=== PATIENT | male | born 1990 | race Caucasian/White ===

== ENCOUNTER 2016-05-25 18:20 | Emergency (ER) | payer SELFPAY ==
[~2016-05-25] VITALS: Ht 167.6 cm; Wt 68.9 kg
[2016-05-25] MEDS ORDERED: ACETAMINOPHEN TAB 650MG DOSE (2X325MG) PO ONE (21:45)
[2016-05-25] MEDS ORDERED: ACETAMINOPH W/CODEINE #3 TAB UD PO ONE (21:45)
[2016-05-25] MEDS ORDERED: TYLETAB14 PO (22:29)
[2016-05-25 22:54] VITALS: BP 124/80
--- NOTE | 2016-05-26 09:02 | REP ---
RIGHT HAND: Four views right hand performed. There is a fracture of the distal 5th metacarpal with mild anterior angulation, without significant displacement. No other acute fracture or dislocation is seen of the visualized osseous structures. IMPRESSION: Nondisplaced fracture distal 5th metatarsal with mild anterior angulation. Signed by Felix Rdz MD 05/26/2016 05:16 P
== END 2016-05-25 23:04 | disposition home or self-care (01) ==
LOC: M ED 20:03
DX: S62.336A Displaced fracture of neck of fifth metacarpal bone, right hand, initial encounter for closed fracture (principal); W22.8XXA Striking against or struck by other objects, initial encounter; Y92.019 Unspecified place in single-family (private) house as the place of occurrence of the external cause; Y93.89 Activity, other specified; Y99.8 Other external cause status

== ENCOUNTER 2017-05-29 13:42 | Emergency (ER) | payer SELFPAY, MEDICAID | END 2017-05-29 16:08 | disposition home or self-care (01) | LOC: M ED 13:42 | DX: S29.012A Strain of muscle and tendon of back wall of thorax, initial encounter (principal); X58.XXXA Exposure to other specified factors, initial encounter; Y92.9 Unspecified place or not applicable; Y93.89 Activity, other specified; Y99.0 Civilian activity done for income or pay; F17.200 Nicotine dependence, unspecified, uncomplicated; Z88.1 Allergy status to other antibiotic agents | CPT/HCPCS: 73030 ==

== ENCOUNTER 2017-08-06 17:38 | Emergency (ER) | payer SELFPAY, OTHER ==
[2017-08-06] MEDS: ADACEL/BOOSTRIX VACCINE (DIPHTH/PERTUSS/ACELL/TETANUS)0.5ML SYR (90715) IM (19:40)
[2017-08-06] MEDS: ACETAMINOPH W/CODEINE #3 TAB UD PO (19:40)
== END 2017-08-06 21:22 | disposition home or self-care (01) ==
LOC: M ED 17:38
DX: Z04.1 Encounter for examination and observation following transport accident (principal); S80.12XA Contusion of left lower leg, initial encounter; S63.91XA Sprain of unspecified part of right wrist and hand, initial encounter; V13.4XXA Pedal cycle driver injured in collision with car, pick-up truck or van in traffic accident, initial encounter; Y92.410 Unspecified street and highway as the place of occurrence of the external cause; F17.200 Nicotine dependence, unspecified, uncomplicated; Z88.1 Allergy status to other antibiotic agents
CPT/HCPCS: 90715

== ENCOUNTER 2018-04-28 21:36 | Emergency (ER) | payer SELFPAY ==
[~2018-04-28] VITALS: Ht 167.6 cm; Wt 68.2 kg
[~2018-04-28 21:36] MED LIST: CYCL10TA PO; KETO10TAB PO; TYLETAB14 PO
[2018-04-28 21:37] VITALS: BP 148/78
== END 2018-04-28 22:58 | disposition home or self-care (01) ==
LOC: M ED 21:36
DX: H61.21 Impacted cerumen, right ear (principal); F17.200 Nicotine dependence, unspecified, uncomplicated; Z88.1 Allergy status to other antibiotic agents

== ENCOUNTER → 2018-12-13 | Outpatient (REF) | payer SELFPAY | LOC: M LAB REF 19:16 | PROVIDERS: ATTEND Nurse Practitioner Family | DX: R09.81 Nasal congestion (principal); J02.9 Acute pharyngitis, unspecified ==

== ENCOUNTER → 2019-02-13 | Outpatient (REF) | payer OTHER, SELFPAY ==
[2019-02-13 12:15] LABS: BASO # 0.1 10^3/uL (0.0-0.2); BASO % 0.9 % (0.0-1.0); EOS # 0.4 10^3/uL (0.0-0.5); EOS % 7.3 % (0.0-3.0); HEMATOCRIT 46.4 % (42.0-52.0); HEMOGLOBIN 15.7 g/dl (13.5-17.5); LYMPH # 2.1 10^3/uL (1.5-5.0); LYMPH % 35.6 % (24.0-44.0); MEAN CORPUSCULAR HEMOGLOBIN 32.8 pg (27.0-33.0); MEAN CORPUSCULAR HGB CONC 33.8 g/dl (32.0-36.5); MEAN CORPUSCULAR VOLUME 97.1 fl (80.0-96.0); MONO # 0.6 10^3/uL (0.0-0.8); MONO % 10.2 % (0.0-5.0); NEUTROPHILS # 2.7 10^3/uL (1.5-8.5); NEUTROPHILS % 45.8 % (36.0-66.0); PLATELET COUNT, AUTOMATED 182 10^3/uL (150-450); RED BLOOD COUNT 4.78 10^6/uL (4.30-6.10); WHITE BLOOD COUNT 5.9 10^3/uL (4.0-10.0)
[2019-02-13 12:38] LABS: ALBUMIN 4.1 GM/DL (3.2-5.2); ALT/SGPT 35 U/L (12-78); BILIRUBIN,TOTAL 0.6 MG/DL (0.2-1.0); BLOOD UREA NITROGEN 14 MG/DL (7-18); CALCIUM LEVEL 8.8 MG/DL (8.5-10.1); CARBON DIOXIDE LEVEL 25 MEQ/L (21-32); CHLORIDE LEVEL 110 MEQ/L (98-107); CHOLESTEROL LEVEL 150 MG/DL (<200); CREATININE FOR GFR 0.96 MG/DL (0.70-1.30); FREE T4 1.01 NG/DL (0.76-1.46); GLOMERULAR FILTRATION RATE > 60.0 (>60); GLUCOSE, FASTING 100 MG/DL (70-100); HDL CHOLESTEROL 46 MG/DL (>40); LDL CHOLESTEROL 85 MG/DL (<100); NON-HDL-C 104 MG/DL; POTASSIUM SERUM 4.3 MEQ/L (3.5-5.1); SODIUM LEVEL 141 MEQ/L (136-145); TOTAL 25(OH) VITAMIN D 21.6 NG/ML (30.0-100.0); TOTAL PROTEIN 7.2 GM/DL (6.4-8.2); TRIGLYCERIDES LEVEL 93 MG/DL (<150)
[2019-02-13 13:14] LABS: HEMOGLOBIN A1c 5.3 %
== END ==
LOC: M LAB REF 11:56
PROVIDERS: ATTEND Nurse Practitioner Family
DX: Z13.9 Encounter for screening, unspecified (principal)

== ENCOUNTER → 2019-09-11 | Outpatient (CLI) | payer OTHER ==
[~2019-09-11] MED LIST changes: +CYCL-707 PO; -CYCL10TA PO
--- NOTE | 2019-09-11 14:19 | REP ---
Clinical: Right shoulder pain . Technique: Internal rotation, external rotation, and Y view right shoulder . Findings: No acute fracture or dislocation. The acromioclavicular and glenohumeral joints are intact. No periarticular calcifications or degenerative changes are appreciated. Sub acromial space is normal. Surrounding soft tissues are unremarkable. Impression: Normal age-appropriate right shoulder radiographs. Electronically Signed by Bud Walsh MD 09/11/2019 02:10 P
== END ==
LOC: M RAD 13:33
PROVIDERS: ATTEND Nurse Practitioner Family
DX: M25.511 Pain in right shoulder (principal)

== ENCOUNTER → 2020-06-13 | Outpatient (REF) | payer OTHER | LOC: M LAB REF 21:09 | PROVIDERS: ATTEND Physician Assistant | DX: J02.9 Acute pharyngitis, unspecified (principal) ==

== ENCOUNTER → 2020-08-29 | Outpatient (CLI) | payer OTHER ==
--- NOTE | 2020-08-29 13:36 | REP ---
INDICATION: RT SIDE LOCALIZED SWELLING MASS LUMP. COMPARISON: None. TECHNIQUE: Real-time sonographic evaluation of thyroid in soft tissues neck performed. FINDINGS: Right lobe of thyroid measures 5.3 x 2.6 x 1.6 cm and left lobe 5.1 x 1.9 x 1.6 cm. No cystic or solid nodule is seen in the right lobe of the thyroid. In the left lobe of the thyroid there is a 6 mm cyst with a thin internal septation. At the site of the palpable lump in the right neck between the right lobe of the thyroid and the right mandible, there is a complex cystic and solid nodule. This measures 3.0 x 1.5 x 2.2 cm. There are peripheral solid and central cystic components. Arterial flow is seen in the solid components with duplex Doppler evaluation. IMPRESSION: Complex cystic and solid mass at the site of the reported palpable abnormality in the right neck soft tissues just superior to the right lobe of the thyroid gland. Differential diagnosis is vast and includes both benign and malignant etiologies. <Electronically signed by Felix Rdz > 08/29/20 [id number]
== END ==
LOC: M RAD 12:18
PROVIDERS: ATTEND Physician Assistant
DX: R22.1 Localized swelling, mass and lump, neck (principal)

== ENCOUNTER → 2020-09-05 | Outpatient (CLI) | payer OTHER ==
--- NOTE | 2020-09-07 03:58 | REP ---
INDICATION: IMPINGEMENT OF RT SHOULDER. COMPARISON: 09/11/2019 TECHNIQUE: Internal rotation, external rotation, axillary and Y-view of the right shoulder FINDINGS: No evidence for acute or healed injury. No significant degenerative changes are appreciated. Osseous structures, joint spaces, and surrounding soft tissues are essentially stable and normal for age. Subacromial space is normal. No periarticular calcifications or loose bodies are identified. IMPRESSION: Normal stable age-appropriate right shoulder radiographs <Electronically signed by Bud Walsh > 09/07/20 [id number]
== END ==
LOC: M SOG 15:28
PROVIDERS: ATTEND Orthopaedic Surgery Sports Medicine
DX: M75.41 Impingement syndrome of right shoulder (principal)

== ENCOUNTER 2021-06-11 06:19 | Emergency (ER) | payer OTHER ==
[~2021-06-11] VITALS: Ht 167.6 cm; Wt 70.5 kg
[2021-06-11 08:13] LABS: HEMATOCRIT 45.1 % (42.0-52.0); HEMOGLOBIN 15.2 g/dl (13.5-17.5); MEAN CORPUSCULAR HEMOGLOBIN 32.7 pg (27.0-33.0); MEAN CORPUSCULAR HGB CONC 33.7 g/dl (32.0-36.5); PLATELET COUNT, AUTOMATED 165 10^3/uL (150-450); RED BLOOD COUNT 4.65 10^6/uL (4.30-6.10); WHITE BLOOD COUNT 6.1 10^3/uL (4.0-10.0)
[2021-06-11] MEDS ORDERED: NS 1,000 ML IV ONE (08:15)
[2021-06-11 08:37] LABS: ALBUMIN 4.1 GM/DL (3.2-5.2); ALT/SGPT 56 U/L (12-78); BILIRUBIN,TOTAL 0.3 MG/DL (0.2-1.0); BLOOD UREA NITROGEN 20 MG/DL (7-18); CARBON DIOXIDE LEVEL 28 MEQ/L (21-32); CHLORIDE LEVEL 112 MEQ/L (98-107); CREATININE FOR GFR 0.87 MG/DL (0.70-1.30); GLOMERULAR FILTRATION RATE > 60.0 (>60); GLUCOSE, FASTING 100 MG/DL (70-100); LIPASE 407 U/L (73-393); POTASSIUM SERUM 4.4 MEQ/L (3.5-5.1); SODIUM LEVEL 142 MEQ/L (136-145); TOTAL PROTEIN 6.9 GM/DL (6.4-8.2)
[2021-06-11 09:09] LABS: RSV AMPLIFICATION NEGATIVE (NEGATIVE)
[2021-06-11 09:43] VITALS: BP 120/62
== END 2021-06-11 10:09 | disposition home or self-care (01) ==
LOC: M ED 06:19
DX: R11.2 Nausea with vomiting, unspecified (principal); F17.210 Nicotine dependence, cigarettes, uncomplicated; Z88.8 Allergy status to other drugs, medicaments and biological substances

== ENCOUNTER → 2021-07-23 | Outpatient (REF) | LOC: M EMP 10:01 | PROVIDERS: ATTEND Family Medicine | DX: Z11.52 Encounter for screening for COVID-19 (principal) ==